=== PATIENT | male | born 1995 | race Caucasian/White ===

== ENCOUNTER 2021-08-13 18:48 | Emergency (ER) | payer BC, SELFPAY ==
[2021-08-13 19:03] VITALS: BP 118/68; PULSE 67; RESP 16; TEMP 36.6; O2SAT 100
--- NOTE | 2021-08-13 20:14 | ED.EYEPROB ---
HPI - Eye Problem General Chief complaint: Eye Problems Stated complaint: Eye Problem Time Seen by Provider: 08/13/21 20:05 Source: patient, RN notes reviewed and old records reviewed Mode of arrival: ambulatory Limitations: no limitations History of Present Illness HPI Narrative: 25 year old male presents to [facility] care with complaints of possible foreign body in his right eye. Patient states about an hour ago he was walking into his garage and the wind blew something into his right eye. He states no visual changes but discomfort burning sensation with excessive watering, photophobia, difficulty opening his right eye with redness. Patient denies any acute sharp pain to his right eye. MD chief complaint: eye pain and foreign body Onset (ago): hour(s) (1) Onset description: sudden Location: right eye Eye Symptoms: burning Mechanism: other (feels like something in eye) Severity scale (1-10): 6 If Pain, Quality: burning Related Data Allergies Allergy/AdvReac Type Severity Reaction Status Date / Time No Known Allergies Allergy Verified 08/13/21 19:33 Review of Systems Review of Systems: CONSTITUTIONAL: Denies fever, chills, or sweats. EYES: Denies visual changes,positive for redness,photophobia and feeling of foreign body to right eye, excessive watering ENT: Denies rhinorrhea, congestion, sore throat, or otalgia. CARDIOVASCULAR: Denies chest pain, palpitations, or edema. RESPIRATORY: Denies cough or dyspnea. GASTROINTESTINAL: Denies abdominal pain, nausea, vomiting, or diarrhea. GENITOURINARY: Denies dysuria or hematuria. SKIN: Denies rash or itching. MUSCULOSKELETAL: Denies back pain, joint pain, or myalgia. NEUROLOGIC: Denies headache, numbness, or weakness. PSYCHIATRIC: Denies anxiety or depression. All systems reviewed & are unremarkable except as noted in HPI and below PMFSH Past Medical History Medical History (Updated 08/16/21 @ 08:11 by Ricarda Mooney NP) No pertinent past medical history Surgical History Surgical History (Updated 08/16/21 @ 08:01 by Ricarda Mooney NP) No history of previous surgery Social History Social History (Updated 08/16/21 @ 08:00 by Ricarda Mooney NP) Smoking status: Current every day smoker Tobacco type: cigarettes Alcohol intake: current Alcohol use details: social Substance use type: does not use Gender identity (if verbalized by the patient): Male Comments At time of signature, agree with nursing past medical, surgical, social and family history. There is no relevant family history pertinent to the presenting complaint Exam Narrative: GENERAL: Well-appearing, well-nourished, and in no acute distress. HEAD: Normocephalic, atraumatic. EYES: PERRLA and EOMI.sclera red no conjunctiva redness, right eye has excessive watering, photophobia with foreign body feeling, no change in vision, denies any sharp pain to right eye ENT: Nares clear, no rhinorrhea or epistaxis. Mucous membranes moist.TM;s normal, throat pink with no lesions or tonsil swelling. NECK: Supple.no lymphadenopathy CHEST: Clear to auscultation. No respiratory distress.SAO2 100% on room air HEART: Regular rate and rhythm. No murmur heard. Normal peripheral pulses. ABDOMEN: Soft, nontender, nondistended, normal active bowel sounds. EXTREMITIES: Normal range of motion. No edema. SKIN: Warm, dry, no rash. NEURO: No focal deficits. Alert and oriented x3. Course Course Level of Care: Express Care Visit Vital Signs Vital signs: Vital Signs Temperature 36.6 C 08/13/21 19:03 Pulse Rate 67 08/13/21 19:03 Respiratory Rate 16 08/13/21 19:03 Blood Pressure 118/68 08/13/21 19:03 Pulse Oximetry 100 08/13/21 19:03 Temperature 36.6 C 08/13/21 19:03 Pulse Rate 67 08/13/21 19:03 Respiratory Rate 16 08/13/21 19:03 Blood Pressure 118/68 08/13/21 19:03 Pulse Oximetry 100 08/13/21 19:03 Procedures FB Removal Eye Foreign Body #1: Foreign Body Removal Date
== END 2021-08-13 20:20 | disposition home or self-care (01) ==
PROVIDERS: Emergency Provider Registered Nurse
DX: S05.01XA Injury of conjunctiva and corneal abrasion without foreign body, right eye, initial encounter (principal); F17.210 Nicotine dependence, cigarettes, uncomplicated; X58.XXXA Exposure to other specified factors, initial encounter; Y92.008 Other place in unspecified non-institutional (private) residence as the place of occurrence of the external cause
CPT/HCPCS: 99213; A9270; G0463